=== PATIENT | male | born 1985 | race Caucasian/White ===

== ENCOUNTER 2017-07-12 10:04 | Emergency (ER) | payer SELFPAY ==
[~2017-07-12] VITALS: Ht 180.3 cm; Wt 77.0 kg
[2017-07-12 10:05] VITALS: BP 160/87; PULSE 67; RESP 16; TEMP 98.5; O2SAT 100
--- NOTE | 2017-07-12 10:37 | PD ---
HPI Chief Complaint: Musculoskeletal Complaint Time Seen by Provider: 10:12 Travel History International Travel<30 days: No Contact w/Intl Traveler<30days: No Traveled to known affect area: No History of Present Illness HPI 31-year-old male that presents to the ED for evaluation of right elbow pain. Patient has had this pain for the past month and a half. Per patient he states that he initially injured it by bumping into something. Per patient didn't think much of it as he thought it would get better but he has not improved at all in the past month and a half. He denies being seen by anybody for this. He is able to move the elbow but has difficulty with extension of the elbow and carrying heavy objects. Per patient carrying heavy objects cause pain especially with extension. He is able to do it however. Per patient the pain is 6 out of 10. He has not seen anybody for this. He denies any chest pain or shortness of breath. No neurological deficits per patient. Has not tried anything [id number]. 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 He has no allergies to medication. [facility] Past Medical History Medical History: Denies Significant Hx Past Surgical History Neurologic Surgery: Yes (2X BRAIN) Other Surgery: Yes (PLATE IN JAW) Social History Alcohol Use: Yes Tobacco Use: Yes Substance Use: No Allergies-Medications (Allergen,Severity, Reaction): Coded Allergies: No Known Allergies (Unverified , 07/12/17) Reported Meds & Prescriptions Reported Meds & Active Scripts Active No Active Prescriptions or Reported Medications Review of Systems Except as stated in HPI: all other systems reviewed are Neg Physical Exam Narrative GENERAL: SKIN: Warm and dry. HEAD: Atraumatic. Normocephalic. EYES: Pupils equal and round. No scleral icterus. No injection or drainage. ENT: No nasal bleeding or discharge. Mucous membranes pink and moist. NECK: Trachea midline. No JVD. CARDIOVASCULAR: Regular rate and rhythm. RESPIRATORY: No accessory muscle use. Clear to auscultation. Breath sounds equal bilaterally. GASTROINTESTINAL: Abdomen soft, non-tender, nondistended. Hepatic and splenic margins not palpable. MUSCULOSKELETAL: Extremities without clubbing, cyanosis, or edema. No obvious deformities. Full range of motion of the upper and lower extremities bilaterally. Patient to producible pain on the right lateral epicondyle as well as with supination of the wrist as well as with extension of the elbow. Otherwise minimal discomfort. 5 out of 5 strength bilaterally. Good sensation bilaterally. 2+ pulses bilaterally. No obvious bony deformity although does appear to be slightly swollen compared to the left. NEUROLOGICAL: Awake and alert. No obvious cranial nerve deficits. Motor grossly within normal limits. Five out of 5 muscle strength in the arms and legs. Normal speech. PSYCHIATRIC: Appropriate mood and affect; insight and judgment normal. Data Data Last Documented VS Vital Signs Date Time Temp Pulse Resp B/P (MAP) Pulse Ox O2 Delivery O2 Flow Rate FiO2 07/12/17 10:05 98.5 67 16 160/87 (111) 100 Room Air Orders Orders Elbow, Complete (4 Vws) (07/12/17 ) [facility] Medical Decision Making Medical Screen Exam Complete: Yes Emergency Medical Condition: Yes Medical Record Reviewed: Yes Interpretation(s) xray of the right elbow negative for acute disease Differential Diagnosis Lateral epicondylitis versus medial epicondylitis versus elbow pain versus fracture Narrative Course 31-year-old male that presents to the ED for evaluation of right elbow pain. Patient was properly examined and was found to have signs and symptoms consistent appears to be very likely lateral epicondylitis versus fracture. I recommend x-ray to rule out any sign of bony injury as patient continues to have symptoms and no improvement after injury to it. X-ray showed no sign of acute bony injury. Patient was reassured. Likely lateral epicondylitis. Patient was given prescription for diclofenac sodium and prednisone to help with symptoms. Told to take as needed. Ice or warm compresses. Do recommend that he gets a brace [id number] to help with this. He understands and agrees with plan. Patient was told that if he does not improve in the next couple months patient will need to follow up with an orthopedic surgeon for further evaluation and treatment. See ED worsening symptoms. Follow with PCP. Diagnosis Primary Impression: Lateral epicondylitis of elbow Patient Instructions: General Instructions Additional Instructions: Take medications as prescribed. Follow-up with PCP or ortho See ED for any worsening symptoms. Apply ice or heat as needed for pain Med/Other Pt SpecificInfo: Prescription(s) given Scripts No Active Prescriptions or Reported Meds Disposition: 01 DISCHARGE HOME Condition: Stable Raymond Torres Jul 12, 2017 10:37
[2017-07-12] MEDS ORDERED: DICL75TA PO (10:38)
[2017-07-12] MEDS ORDERED: PRED20 PO (10:38)
--- NOTE | 2017-07-12 10:46 | RADRPT ---
EXAM DATE/TIME: 07/12/2017 10:29 [facility] COMPARISON: No previous studies available for comparison. INDICATIONS : Right elbow pain for 1 month. MEDICAL HISTORY : None. SURGICAL HISTORY : None. ENCOUNTER: Initial ACUITY: 1 month PAIN SCORE: 7/10 LOCATION: Right elbow. FINDINGS: Multiple view examination of the right elbow demonstrates no soft tissue swelling, joint effusion, or fracture. The osseous structures are in normal alignment. Bony mineralization is normal. CONCLUSION: No acute disease. Mendel Quezada MD on July 12, 2017 at 10:44 Board Certified Radiologist. This report was verified electronically.
== END 2017-07-12 10:57 | disposition home or self-care (01) ==
LOC: NEPK 10:04
DX: M77.11 Lateral epicondylitis, right elbow (principal); Z72.0 Tobacco use
CPT/HCPCS: 73080; 99283